=== PATIENT | female | born 2000 | race Caucasian/White ===

== ENCOUNTER 2019-05-24 10:27 | Emergency (ER) | payer OTHER, SELFPAY ==
[2019-05-24 10:36] VITALS: BP 110/66; PULSE 65; RESP 16; TEMP 37; O2SAT 98
[2019-05-24 10:51] LABS: Bilirubin Negative (Negative); Blood Small (Negative); Clarity Clear (Clear); Glucose Negative (Negative); Ketones Negative (Negative); Leukocyte Esterase Negative (Negative); Nitrite Negative (Negative); Specific Gravity >= 1.030 (1.005-1.025); Urobilinogen 0.2 EU/dL (Up TO 0.2); pH 6.5 (5-8)
--- NOTE | 2019-05-24 11:23 | W.ED.GENAD ---
Discharge Plan Disposition Patient Disposition: HOME Condition: Stable Discharge Details Chief Complaint: LICENSED PSYCHOLOGIST Clinical Impression: Exposure to STD, Vaginal discharge Primary Care Provider: Melita Luong ED Provider: Kristal Harmon Home Meds and New Rx's Prescriptions: New metronidazole [Flagyl] 500 mg tablet 500 mg PO BID 5 Days Qty: 10 RF: 0 Discharge Instructions Instructions: Bacterial Vaginosis (ED), Sexually Transmitted Diseases (ED) Additional Instructions: If you have no relief or worsening of symptoms, you can start the Flagyl. If you have symptoms that worsen consistent with yeast infection, take the Diflucan. Follow-up with your scheduled appointment with [facility] this week. Return immediately to the emergency department if you develop any worsening or new concerning symptoms. Discharge Data Discharge Date/Time-TO BE ENTERED AT DEPARTURE: 05/24/19 12:30 Discharge Physician: Kristal Harmon Medical Decision Making 18-year-old female who presents with white vaginal discharge, vaginal odor. crampy lower abdominal pain x 4 days and recent exposure to partner who tested positive for chlamydia. Patient hemodynamically stable. She has a history of chronic left upper quadrant pain and tenderness, otherwise abdomen soft nontender. She appears nontoxic. Patient also admitted to external vaginal itching and lesions. Patient does not want external or vaginal exam. Discussed with patient that diagnosis could include herpes, genital warts, yeast infection and without examination, we will be missing this diagnosis. She states she would only like treatment for chlamydia. Urinalysis appeared contaminated and not consistent with UTI. Urine test negative. Dose of Zithromax and ceftriaxone given. Discussed that with her complaint of white vaginal discharge and odor, appears more consistent with bacterial vaginosis. Will give prescription for Flagyl. We will also give prescription for Diflucan if her symptoms become more consistent with yeast infection with worsening vaginal itching, redness and swelling with thick discharge. Patient had discussed with triage that she had left-sided headaches. She states this started since her vaginal symptoms started. She denies any headache at present. She has no focal deficits. She is texting on her phone and appears in no acute distress. She has a follow-up appointment with [facility] within the next 2 weeks. She is instructed to follow-up with them for further evaluation and for additional STD testing if desired. Medical Records Medical records reviewed: Yes I reviewed the patient's medical records. Lab Data Lab results reviewed: Yes I reviewed the patient's lab results. Laboratory Tests Range/Units 05/24/19 10:41 Urine Color (Yellow) Yellow Urine Clarity (Clear) Clear Urine pH (5-8) 6.5 Ur Specific [place] (1.005-1.025) >= 1.030 H Urine Protein (Negative) mg/dL 30 H Urine Ketones (Negative) mg/dL Negative Urine Blood (Negative) Small H Urine Nitrite (Negative) Negative Urine Bilirubin (Negative) Negative Urine Urobilinogen (Up TO 0.2) EU/dL 0.2 Ur Leukocyte Esterase (Negative) Negative Urine RBC (0-2) 0-2 Urine WBC (0-5) HPF 3-5 Ur Epithelial Cells (Negative) HPF Moderate Urine Crystals (Negative) HPF Negative Urine Bacteria (Negative) HPF Few Urine Casts (Negative) LPF Negative Urine Mucus (Negative) Trace Urine Other (Negative) Ur Culture Indicated? No Urine Glucose (Negative) mg/dL Negative HPI General Mode of arrival: ambulatory. Date/Time Provider Initiated Documentation: 05/24/19 10:32. Limitations to Documentation: no limitations. Information obtained by: patient. HPI Narrative: Pt is a 18yo F who presents to the ED w/ a c/o white vaginal discharge, vaginal odor and external irritation for the past few days. Pt states her partner recently told her that he has chlamydia. She states she had unprotected sexual intercourse with this partner a couple days before her symptoms started. Pt did not report any headaches to me until I questioned her about this per triage note. She denies headache at present. She denies fever, back pain, visual changes, neck pain. 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 ASCENCION: 4 Review of Systems Review of Systems All systems reviewed & are unremarkable except as noted in HPI and below Constitutional Reports as per HPI, Denies chills and Denies fever(s) Eyes Denies blurry vision ENT Denies dizziness, Denies sore throat and Denies throat swelling Cardiovascular Denies chest pain and Denies dyspnea Respiratory Denies cough and Denies dyspnea Gastrointestinal Reports abdominal pain, Denies diarrhea and Denies vomiting Genitourinary Denies hematuria, Denies dysuria, Reports vaginal discharge (white), Reports vaginal odor and Reports vaginal pruritus Musculoskeletal Denies back pain and Denies numbness Integumentary/Breasts Denies lesions and Denies rash Neurologic Denies dizziness, Denies focal weakness and Denies numbness Allergic/Immunologic Denies throat swelling FOR[facility]LY [facility] Medical History No significant past medical history (Acute) Surgical History No significant past surgical history (Acute) Social History Smoking/Tobacco Use Status: Current every day Tobacco Type: cigarettes Alcohol Intake: never Substance use type: does not use Exam Const General: cooperative, healthy appearing and no acute distress HENMT Head: normal to inspection Face and sinus: normal facial exam Eyes General: appearance normal, both eyes and all related structures Pupils: PERRL EOM: EOM intact bilaterally Neck Neck: normal visual inspection and No submandibular swelling Lymphatic: no lymphadenopathy noted Chest Chest: normal inspection of the chest and no tenderness Resp Effort & Inspection: normal respiratory effort and able to speak in complete sentences Auscultation: clear to auscultation bilaterally Cardio Rate: regular rate Rhythm: regular rhythm GI Inspection: normal to inspection Palpation: soft, not firm, not rigid and nontender (minimal LUQ which she states is chronic) Auscultation: normal bowel sounds Back/Spine/Pelvis Back: no CVA tenderness Skin General skin exam: no rashes or lesions noted Neuro General: alert, awake and oriented x3 Cranial Nerves: CN's II-XI intact bilaterally Cognition: normal cognition Speech: speech normal Motor: muscle tone normal throughout and strength 5/5 throughout Sensory Exam: no sensory deficits noted Extrem General: normal to inspection, full ROM, normal capillary refill, no calf tenderness bilaterally and no edema Psych Appearance: grossly normal Mental Status: mental status grossly normal Speech and Movement: speech and movement normal Affect: normal affect Course Vital Signs Temperature 98.6 F 05/24/19 10:36 Pulse 65 05/24/19 10:36 Respiratory Rate 16 05/24/19 10:36 Blood Pressure 110/66 05/24/19 10:36 Pulse Oximetry 98 05/24/19 10:36 Temperature 98.6 F 05/24/19 10:36 Temperature Source Skin 05/24/19 10:36 Pulse 65 05/24/19 10:36 Respiratory Rate 16 05/24/19 10:36 Blood Pressure 110/66 05/24/19 10:36 Blood Pressure Position Sitting 05/24/19 10:36 Pulse Oximetry 98 05/24/19 10:36 Oxygen Delivery Method Room Air 05/24/19 10:36 Oxygen Flow Rate 0 05/24/19 10:36 Pain Level 3 05/24/19 10:36 Lab/Test Results Lab/Test Results: POC- Test(urine) Negative
[2019-05-24] MEDS: Azithromycin 250 MG TAB 1000 MG PO (11:32)
[2019-05-24] MEDS: cefTRIAXone 250 MG VIAL IM (11:32)
[2019-05-24 11:34] LABS: Bacteria Few HPF (Negative); Crystals Negative HPF (Negative); Epithelial Cells Moderate HPF (Negative); Mucus Trace (Negative); RBC 0-2 (0-2)
[2019-05-24 11:35] LABS: C & S Indicated? No; Casts Negative LPF (Negative)
== END 2019-05-24 12:30 | disposition home or self-care (01) ==
PROVIDERS: Nurse Practitioner Family; Emergency Provider Physician Assistant; PCP Nurse Practitioner Family
DX: N89.8 Other specified noninflammatory disorders of vagina (principal); Z20.2 Contact with and (suspected) exposure to infections with a predominantly sexual mode of transmission
CPT/HCPCS: 81025; 96372; 99284; 81003; 81015; J0696

== ENCOUNTER 2021-01-25 12:25 | Outpatient (REF) | payer OTHER, SELFPAY ==
--- NOTE | 2021-01-25 11:30 | PAPFT_PTH ---
PATIENT: Isis Sandy LOC: [facility] U#:[id number] AGE/SX: 20/F ROOM: RE01/25/[address]: Roselyn Bear : 2000 BED: DIS: 01/25/2021 SPEC #: [id number] RECD: 01/26/21 12:56 STATUS: JO REWilfrido #: [id number] JESSICA: 01/25/21 11:[address]: Roselyn Bear DEPT: [facility] Cytology RECD BY: Dena Canseco Tissues: 1 - CX/ENDOCX FOR PAP SMEARS Procedures: PAP THIN PREP/UVM Screening Comments: [id number] (CHLAMYDIA/GC)
[2021-01-29 15:47] LABS: GC Result Negative (Negative)
[2021-01-29 16:46] LABS: Chlamydia Result Positive (Negative)
== END 2021-01-25 12:26 | disposition home or self-care (01) ==
LOC: NCHCN 12:25
PROVIDERS: PCP Family Medicine; Visit Provider Family Medicine
DX: Z11.3 Encounter for screening for infections with a predominantly sexual mode of transmission (principal); Z12.4 Encounter for screening for malignant neoplasm of cervix; Z01.419 Encounter for gynecological examination (general) (routine) without abnormal findings
CPT/HCPCS: 87491; 87591; 88142

== ENCOUNTER 2022-04-24 14:42 | Outpatient (REF) | payer OTHER, SELFPAY ==
[2022-04-25 14:46] LABS: Chlamydia Result Negative (Negative); GC Result Negative (Negative)
== END 2022-04-24 14:43 | disposition home or self-care (01) ==
LOC: LBN 14:42
PROVIDERS: PCP Family Medicine; Visit Provider Nurse Practitioner Women's Health
DX: Z11.3 Encounter for screening for infections with a predominantly sexual mode of transmission (principal)
CPT/HCPCS: 87491; 87591

== ENCOUNTER 2025-04-14 18:39 | Emergency (ER) | payer OTHER, SELFPAY ==
[2025-04-14 18:46] VITALS: BP 128/82; PULSE 105; RESP 20; TEMP 37; O2SAT 96
[2025-04-14 18:49] VITALS: BP 128/82; PULSE 105; RESP 20; TEMP 37; O2SAT 96
--- NOTE | 2025-04-14 20:06 | W.ED.GENAD ---
Discharge Plan Disposition Patient Disposition: Home Condition: Stable Discharge Details Clinical Impression: Acute viral pharyngitis Primary Care Provider: Roselyn Bear ED Provider: Mey Barton Home Meds and New Rx's Prescriptions: No Action Nexplanon 68 mg implant 1 implant subdermal ONCE Qty: 1 0RF Rx Instructions: as a single dose Discharge Instructions Instructions: Sore Throat, Adult ED Additional Instructions: You were seen in the emergency department today for evaluation of a sore throat. In our department had a full physical examination performed, and you had a negative strep test. You likely have viral pharyngitis. We provided you with a medication called dexamethasone which can improve symptoms for around 24 hours. You need to maintain good hydration and nutrition during this time, and should continue to use [id number] medications to manage any ongoing pain. Please use therapeutic dosing of Tylenol (acetaminophen) & Advil (ibuprofen) in an alternating fashion as follows: Take 1000mg of Tylenol every 6 hours without missing doses- that is 4 times per day. Intermediate in between the Tylenol doses, take 600mg of Advil also on a 6 hour schedule, that is also 4 times per day. With this strategy, you will be taking something for fever/pain as often as every 3 hours. The daily maximum dosing of Tylenol is 4000mg, and the daily maximum dosing of Advil is 2400mg. Please note that some common cold medications & prescription pain medications may contain acetaminophen and you need to read OTC drug labels and factor that in to maximum daily doses. I have provided you with a referral to establish with a primary care provider. You need to contact them if you start to experience any worsening symptoms such as fever, runny nose, cough, abdominal pain, or you can return to the emergency department for reevaluation. Thank you for allowing us to be part of your care. Discharge Data Discharge Date/Time-TO BE ENTERED AT DEPARTURE: 04/14/25 20:24 HPI General Mode of arrival: ambulatory. Date/Time Provider Initiated Documentation: 04/14/25 18:48. Limitations to Documentation: no limitations. Information obtained by: patient and old records reviewed. HPI Narrative: This is a 24-year-old female patient without significant past medical history presenting for evaluation of sore throat for the last week. She reports that she has felt burning and scratching, pain with swallowing, and a raspy voice. No difficulty moving her neck or opening her mouth, she reports a low-grade fever to 99 degrees, has not had any runny or stuffy nose, cough, shortness of breath, or abdominal pain. She has had no recent sick contacts, and has been able to maintain her hydration. She noticed white discharge on her tonsils, prompting her to seek care. She has not tried any medications in the outpatient environment for management of her symptoms. Related Data Home Medications ?Medication ?Instructions ?Recorded ?Confirmed etonogestrel 68 mg subdermal 1 implant subdermal ONCE #1 ea 04/24/22 04/14/25 implant (Nexplanon) Previous Rx's ?Medication ?Instructions ?Recorded etonogestrel 68 mg subdermal 1 implant subdermal ONCE #1 ea 04/24/22 implant (Nexplanon) Allergies Allergy/AdvReac Type Severity Reaction Status Date / Time No Known Allergies Allergy Unverified 04/14/25 18:50 General Stated Complaint: Sorethroat ASCENCION: 4 Exam Narrative Exam Narrative: Gen: Awake and alert, in no apparent distress HEENT: Non-icteric sclera, PERRL, posterior pharynx with 2+ tonsils, with a few tonsil stones appreciated but no erythema, exudate, or swelling. She has no asymmetry or peritonsillar swelling to suggest abscess. Neck: Supple, full range of motion of the neck without meningismus, no trismus, no tender lymphadenopathy palpable Lungs: No apparent respiratory distress, normal respiratory effort. Lung sounds clear and equal bilaterally without wheezes, rhonchi, rales CV: Appears well perfused, heart with regular rate and rhythm, no murmurs auscultated Abdomen: Non-distended, soft, nontender, no rigidity, rebound, guarding MSK: Moves 4 extremities without apparent limitation in ROM Skin: Visualized skin without rashes, cyanosis. Neuro: Normal Gait, no obvious focal deficits or facial asymmetry. Speaks in full, clear sentences. Psych: Appropriate for situation. Course Vital Signs Vital signs: Vital Signs Temperature 37.0 C 04/14/25 18:46 Pulse 105 H 04/14/25 18:46 Respiratory Rate 20 04/14/25 18:46 Blood Pressure 128/82 04/14/25 18:46 Pulse Oximetry 96 04/14/25 18:46 Temperature 37.0 C 04/14/25 18:49 Pulse 105 H 04/14/25 18:49 Respiratory Rate 20 04/14/25 18:49 Blood Pressure 128/82 04/14/25 18:49 Blood Pressure Position Sitting 04/14/25 18:49 Pulse Oximetry 96 04/14/25 18:49 Oxygen Delivery Method Room Air 04/14/25 18:49 Oxygen Flow Rate 0 04/14/25 18:49 Lab/Test Results Lab/Test Results: 04/14/25 19:15 Pharynx Group A Streptococcus Culture - Pending POC Strep Test-ANTHONY(Rapid) Start: 04/14/25 18:48 Freq: .Rapid Strep Test Status: Active Protocol: Document 04/14/25 19:29 (Rec: 04/14/25 19:30 [id number]) Strep test-ANTHONY(Rapid)-POC POC-Strep test-ANTHONY (Rapid) Negative POC-Strep test-ANTHONY (Rapid) Negative Medical Decision Making This is a 24-year-old female patient presenting for evaluation of sore throat. My differential includes but is not limited to pharyngitis including strep pharyngitis, viral pharyngitis. I see no evidence on my physical examination of peritonsillar abscess, retropharyngeal abscess, Lázaro's angina, and she is hemodynamically appropriate and without evidence of systemic infection such as bacteremia or sepsis. I considered mononucleosis, viral upper respiratory infection, bronchitis and pneumonia though the patient is without localizing respiratory symptoms to significantly increase my concern for same. She is tolerating oral intake and I have a low concern for metabolic and electrolyte derangement and dehydration. A [id number] strep screen was negative, this will be sent for culture. I do not see an indication at this time to proceed with advanced imaging or laboratory studies. I provided the patient with a dose of dexamethasone, and counseled her on the use of Tylenol and ibuprofen for pain management, and to maintain good hydration and nutrition. A referral to establish with primary care was provided to this patient, and at this time, the patient has had a full medical evaluation and is safe for discharge to home. They are hemodynamically stable, ambulatory, and tolerating PO. They are understanding of the follow-up plan and return precautions. They left our facility without incident. Mey Barton MD Quality:SDOH Health Related Social Needs: No Data to Display PFSH All Active Problems Acute viral pharyngitis (Acute) Presence of subdermal contraceptive implant (Acute 04/24/22) Medical History (Updated 04/14/25 @ 20:07 by Mey Barton MD) No significant past medical history Surgical History No significant past surgical history Social History (Updated 04/17/22 @ 15:53 by Keshia Vallecillo NP) Smoking/Tobacco Use Status: Current every day Tobacco Type: cigarettes Smoking risk assessment performed?: Yes Alcohol Intake: never Substance use type: does not use Sexually active: Yes Do you think of yourself as: straight/heterosexual Current gender identity: female Female Reproductive History Menstrual control method: implanted History History 0 Para Hx # Term Pregnancies Multiple births Hx # Pregnancies Ectopic pregnancies AB induced Hx Number of Living Children AB spontaneous PAWSS Have you Been Recently Intoxicated or Drunk Within the Last 30 days?: No Have you Ever Experienced Previous Episodes of Alcohol Withdrawal?: No Have you ever Experienced Withdrawal Seizures?: No Have you ever Experienced Delirium Tremens(DT)s?: No Have you ever undergone Alcohol Rehabilitation Treatment (i.e, inpt ot outpatient treatment programs)?: No Have you ever Experienced Blackouts?: No Have you ever Combined Alcohol with other Downers within the last 90 days?: No Have you ever Combined Alcohol with any other Substance of Abuse during the last 90 days?: No Positive Blood Alcohol level on Presentation? [PCS.BAL]: No Evidence of Increased Autonomic Activity (i.e. HR>120, tremor, sweating, agitation, nausea)?: No Result: 0
[2025-04-14] MEDS: Dexamethasone 10 MG/ML VIAL PO (20:20)
[2025-04-14 20:23] VITALS: BP 124/51; PULSE 64; RESP 16; O2SAT 98
== END 2025-04-14 20:24 | disposition home or self-care (01) ==
PROVIDERS: Emergency Provider Emergency Medicine; PCP Family Medicine
DX: J02.8 Acute pharyngitis due to other specified organisms (principal); B97.89 Other viral agents as the cause of diseases classified elsewhere
CPT/HCPCS: 87880; 99283; 87081; J1100

== ENCOUNTER 2025-06-13 15:03 | Outpatient (REF) | payer OTHER, SELFPAY ==
--- NOTE | 2025-06-13 14:50 | PAPFT_PTH ---
PATIENT: Isis Sandy LOC: [facility] U#:[id number] AGE/SX: 24/F ROOM: RE06/13/[address]: Keshia Vallecillo NP : 2000 BED: DIS: 06/13/2025 SPEC #: [id number] RECD: 06/13/25 17:44 STATUS: JO REQ #: [id number] JESSICA: 06/13/25 14:[address]: Ruth Ann GRAF,Keshia DEPT: [facility] Cytology RECD BY: Dena Canseco ENTERED: 06/13/25 17:44 SP TYPE: PAPFT OTHR DR: Roselyn Bear Tissues: 1 - CX/ENDOCX FOR PAP SMEARS Procedures: PAP THIN PREP/UVM Screening Comments: [id number] (CHLAMYDIA/GC)
[2025-06-14 13:52] LABS: Chlamydia Result Negative (Negative); GC Result Negative (Negative)
== END 2025-06-13 15:04 | disposition home or self-care (01) ==
LOC: LBN 15:03
PROVIDERS: PCP Family Medicine; Visit Provider Nurse Practitioner Women's Health
DX: Z12.4 Encounter for screening for malignant neoplasm of cervix (principal); Z11.3 Encounter for screening for infections with a predominantly sexual mode of transmission
CPT/HCPCS: 87491; 87591; 88142